=== PATIENT | female | born 2000 | race Two or more races ===

== ENCOUNTER 2020-07-09 13:38 | Inpatient (IN) | payer MEDICAID ==
[~2020-07-09] VITALS: Ht 167.6 cm; Wt 80.3 kg
[2020-07-09] MEDS ORDERED: PREN-96 PO (14:24)
[2020-07-09] MEDS ORDERED: BUTORPHANOL TARTRATE 2 MG/1 ML VIAL IV PRN (16:00)
[2020-07-09] MEDS ORDERED: PROMETHAZINE HCL 25 MG/ML 1ML IV PRN (16:00)
[2020-07-09] MEDS ORDERED: LIDOCAINE 2%HCL (LOCAL ANESTH.) INJ 20ML MDV IJ ONE (16:00)
[2020-07-09 16:50] LABS: Urine WBC None Seen /hpf (0 - 5)
[2020-07-09] MEDS ORDERED: ceFAZolin 1GM/50ML 50 ML IV SCH (17:00)
[2020-07-09] MEDS: LACTATED RINGER'S 1,000 ML IV SCH ×2 (17:15→19:23)
[2020-07-09 17:18] LABS: Amphetamine Screen, Urine NEGATIVE (NEGATIVE); Barbiturate Scree,Urine NEGATIVE (NEGATIVE); Benzodiazephine Screen, Urine NEGATIVE (NEGATIVE); Cannabinoid Screen, Urine NEGATIVE (NEGATIVE); Cocaine Screen, Urine NEGATIVE (NEGATIVE); Opiate Scree,Urine NEGATIVE (NEGATIVE); Phencyclidine Screen, Urine NEGATIVE (NEGATIVE)
[2020-07-09 17:48] LABS: Urine Bacteria NONE SEEN /hpf (None Seen); Urine Blood 3+ /uL (Negative); Urine Mucus FEW (None Seen); Urine Specific Gravity 1.013 (1.001-1.035)
[2020-07-09 18:00] LABS: Basophils # (auto) 0 10 ^3/uL (0-0.2); Basophils % (auto) 0.1 % (0.0-2.0); Eosinophils # (auto) 0 10 ^3/uL (0-0.8); Eosinophils % (auto) 0.1 % (0.0-7.0); Hematocrit 38.2 % (36.0-46.0); Hemoglobin 12.6 g/dL (12.2-16.2); Lymphocytes # (auto) 1.6 10 ^3/uL (0.4-5.4); Lymphocytes % (auto) 15.1 % (10.0-50.0); Mean Corpuscular Hemoglobin 29.7 pg (28.0-32.0); Mean Corpuscular Hgb Conc. 32.9 g/dL (32.0-36.0); Mean Corpuscular Volume 90.2 fL (80.0-100.0); Monocytes # (auto) 0.7 10 ^3/uL (0-1.3); Monocytes % (auto) 6.1 % (0.0-12.0); Neutrophils # (auto) 8.3 10 ^3/uL (1.6-8.6); Neutrophils % (auto) 78.6 % (37.0-80.0); Platelet Count (auto) 175 10^3/uL (140-450); Red Blood Cells 4.23 10^6/uL (4.0-5.20); White Blood Cell 10.6 10^3/uL (4.4-10.8)
[2020-07-09 18:08] LABS: Albumin 2.6 g/dL (3.4-5.0); Calcium 8.9 mg/dL (8.5-10.1); Potassium 3.6 mmol/L (3.5-5.1)
[2020-07-09 18:10] LABS: INR 0.92 (0.9-1.15); Partial Thromboplastin Time 26.2 sec (23.0-31.2)
[2020-07-09 18:11] LABS: BUN/Creatinine Ratio 8.7; Bilirubin, Total 0.4 mg/dL (0.2-1.0); Total Protein 6.5 g/dL (6.4-8.2)
[2020-07-09] MEDS: PHISODERM TOP SOLN 240ML BTL TOP PRN (19:13)
[2020-07-09] MEDS: DERMOPLAST 60ML BOTTLE TOP PRN (19:13)
[2020-07-09] MEDS: WITCH HAZEL-GLYCERIN PAD TOP PRN (19:13)
[2020-07-09] MEDS: miSOPROStol 50 MCG per PRE-CUT 1/2 TAB PO PRN (19:14)
[2020-07-09] MEDS ORDERED: TERBUTALINE SULFATE 1 MG/ML 1ML VIAL SC ONE (19:15)
[2020-07-09] MEDS ORDERED: ONDANSETRON HCL 4 MG/2 ML VIAL IV PRN (19:15)
[2020-07-10] MEDS: ceFAZolin 1GM/50ML 50 ML IV SCH ×3 (01:59→17:33)
[2020-07-10] MEDS: miSOPROStol 50 MCG per PRE-CUT 1/2 TAB PO PRN (01:59)
[2020-07-10] MEDS: LACTATED RINGER'S 1,000 ML IV SCH (04:50)
[2020-07-10] MEDS: LACT. RINGERS/OXYTOCIN 20UNITS 1,000 ML IV SCH ×2 (06:32→17:29)
[2020-07-10] MEDS ORDERED: ROPIVACAINE HCL 100 ML EPI SCH ×2 (07:15→08:30)
[2020-07-10] MEDS ORDERED: ePHEDrine SULFATE 50 MG/ML AMP IV ONE ×2 (07:15→08:30)
[2020-07-10] MEDS ORDERED: SODIUM CHLORIDE 0.9% 500 ML IV PRN (08:30)
[2020-07-10] MEDS ORDERED: NALOXONE HCL 0.4 MG/ML VIAL IV ONE (08:30)
[2020-07-10] MEDS ORDERED: miSOPROStol 100 mcg TAB ONE ×2 (15:48→15:50)
[2020-07-10] MEDS ORDERED: METHYLERGONOVINE MALEATE 0.2 MG/ML AMP IM ONE (15:48)
[2020-07-10] MEDS: WITCH HAZEL-GLYCERIN PAD TOP PRN (16:03)
[2020-07-10] MEDS: DERMOPLAST 60ML BOTTLE TOP PRN (16:03)
[2020-07-10] MEDS: PHISODERM TOP SOLN 240ML BTL TOP PRN (16:03)
[2020-07-10] MEDS ORDERED: IBUPROFEN 600 MG TAB PO PRN (16:15)
[2020-07-10] MEDS ORDERED: ACETAMINOPHEN 325 MG TAB PO PRN (16:15)
[2020-07-10] MEDS ORDERED: DIPHENOXYLATE W/ATROPINE 2.5 MG TAB PO PRN (16:15)
[2020-07-10] MEDS ORDERED: miSOPROStol 100 mcg TAB PR ONE (16:15)
[2020-07-10] MEDS ORDERED: METHYLERGONOVINE MALEATE 0.2 MG/ML AMP IM PRN (16:15)
[2020-07-10] MEDS ORDERED: CARBOPROST TROMETHAMINE 250 MCG/1ML VIAL IM ONE (16:15)
[2020-07-10] MEDS ORDERED: miSOPROStol 100 mcg TAB SL ONE (16:15)
[2020-07-10 19:00] VITALS: BP 122/82
[2020-07-10 23:00] VITALS: BP 111/60
[2020-07-11] MEDS: ceFAZolin 1GM/50ML 50 ML IV SCH ×3 (00:47→17:52)
[2020-07-11 03:00] VITALS: BP 114/68
[2020-07-11 07:00] VITALS: BP 108/68
[2020-07-11 08:06] LABS: RPR Non Reactive (Non Reactive)
[2020-07-11] MEDS: LACT. RINGERS/OXYTOCIN 20UNITS 1,000 ML IV SCH ×2 (09:50)
[2020-07-11 11:00] VITALS: BP 117/60
[2020-07-11 15:00] VITALS: BP 106/73
[2020-07-11 19:00] VITALS: BP 109/67
[2020-07-11] MEDS ORDERED: TETANUS-DIPTH-ACEL PERTUSSIS 0.5ML SYR Tdap IM ONE (19:45)
== END 2020-07-11 20:30 | disposition home or self-care (01) | DRG 560 ==
LOC: LDRP 13:38 → OBSVTOIN 15:57 → LDRP 07-10 19:30
PROVIDERS: ADMIT Obstetrics & Gynecology; ATTEND Obstetrics & Gynecology
PROC: 10D07Z6 Extraction of Products of Conception, Vacuum, Via Natural or Artificial Opening (ICD-10-PCS; principal; 2020-07-10)
PROC: 3E0R3BZ Introduction of Anesthetic Agent into Spinal Canal, Percutaneous Approach (ICD-10-PCS; 2020-07-10)
PROC: 00HU33Z Insertion of Infusion Device into Spinal Canal, Percutaneous Approach (ICD-10-PCS; 2020-07-10)
PROC: 0W8NXZZ Division of Female Perineum, External Approach (ICD-10-PCS; 2020-07-10)
PROC: 0KQM0ZZ Repair Perineum Muscle, Open Approach (ICD-10-PCS; 2020-07-10)
PROC: 3E0234Z Introduction of Serum, Toxoid and Vaccine into Muscle, Percutaneous Approach (ICD-10-PCS; 2020-07-11)
DX: O70.9 Perineal laceration during delivery, unspecified (principal); Z20.828 Contact with and (suspected) exposure to other viral communicable diseases; Z37.0 Single live birth; Z3A.39 39 weeks gestation of pregnancy; Z23 Encounter for immunization
CPT/HCPCS: 36415; 59025; 59409; 62282; 80053; 80307; 81001; 81002; 84112; 85025; 85610; 85730; 86592; 86850; 86900; 86901; 90715; 94762; 96360; 96361; 96366; 96372; 96374; 96375; G0378; J0690; J2590

== ENCOUNTER → 2023-12-21 | Outpatient (CLI) | payer MEDICAID ==
[~2023-12-21] MED LIST: PREN-96 PO
[2023-12-21 11:37] LABS: Basophils # (auto) 0 10 ^3/uL (0-0.2); Basophils % (auto) 0.5 % (0.0-2.0); Eosinophils # (auto) 0.1 10 ^3/uL (0-0.8); Eosinophils % (auto) 1.4 % (0.0-7.0); Hematocrit 41.1 % (36.0-46.0); Hemoglobin 13.5 g/dL (12.2-16.2); Lymphocytes # (auto) 2.2 10 ^3/uL (0.4-5.4); Lymphocytes % (auto) 29.6 % (10.0-50.0); Mean Corpuscular Hemoglobin 29.1 pg (28.0-32.0); Mean Corpuscular Hgb Conc. 32.9 g/dL (32.0-36.0); Mean Corpuscular Volume 88.7 fL (80.0-100.0); Monocytes # (auto) 0.6 10 ^3/uL (0-1.3); Monocytes % (auto) 7.5 % (0.0-12.0); Neutrophils # (auto) 4.6 10 ^3/uL (1.6-8.6); Red Blood Cells 4.64 10^6/uL (4.0-5.20); Red Cell Distribution Width 12.7 % (11.8-14.3); White Blood Cell 7.6 10^3/uL (4.4-10.8)
[2023-12-21 11:48] LABS: Urine Bacteria NONE SEEN /hpf (None Seen); Urine Blood Negative /uL (Negative); Urine Clarity HAZY (Clear); Urine Color Yellow (Yellow); Urine Mucus FEW (None Seen); Urine Protein, UAD TRACE (Negative); Urine Specific Gravity 1.025 (1.001-1.035); Urine Urobilinogen Normal (Negative); Urine WBC 1 /hpf (0 - 5)
[2023-12-21 12:11] LABS: Alanine Aminotransferase 18 U/L (7-40); Albumin 4.4 g/dL (3.2-4.8); Alkaline Phosphatase 85 U/L (46-116); Anion Gap 4 (5-15); Aspartate Aminotransferase 23 U/L (13-40); BUN/Creatinine Ratio 11.8 (10.0-20.0); Bilirubin, Total 0.7 mg/dL (0.2-1.0); Blood Urea Nitrogen 9 mg/dL (9-23); Calcium 9.3 mg/dL (8.5-10.1); Carbon Dioxide 29 mmol/L (20-30); Chloride 108 mmol/L (98-107); Cholesterol 146 mg/dL (< 200); Glucose 77 mg/dL (74-106); HDL Cholesterol 51 mg/dL (40-59); LDL Cholesterol 91 mg/dL (< 100); Potassium 3.9 mmol/L (3.5-5.1); Sodium 141 mmol/L (136-145); Triglycerides 73 mg/dL (< 150)
[2023-12-21 12:12] LABS: Total Protein 7.4 g/dL (5.7-8.2)
== END | disposition home or self-care (01) ==
LOC: LAB 11:26
PROVIDERS: ATTEND Student in an Organized Health Care Education/Training Program
DX: E55.9 Vitamin D deficiency, unspecified (principal); R73.9 Hyperglycemia, unspecified; R03.0 Elevated blood-pressure reading, without diagnosis of hypertension; R53.83 Other fatigue
CPT/HCPCS: 36415; 80053; 80061; 81001; 82306; 83036; 84443; 85025

== ENCOUNTER → 2024-02-06 | Outpatient (CLI) | payer BC, MEDICAID | END | disposition home or self-care (01) | LOC: XYW 09:38 | PROVIDERS: ATTEND Student in an Organized Health Care Education/Training Program | DX: D24.1 Benign neoplasm of right breast (principal); N63.12 Unspecified lump in the right breast, upper inner quadrant | CPT/HCPCS: 19083; 76942 ==